=== PATIENT | female | born 1980 | race Caucasian/White ===

== ENCOUNTER 2017-05-02 15:04 | Emergency (ER) | payer OTHER ==
[~2017-05-02 15:04] MED LIST: LORTAB 5/500 TA1 TA1 PO; NO MEDICATIONS; PRENATAL MULTIV1 TA1; VOLTAREN50 MG PO; VOLTAREN75 MG PO
== END 2017-05-02 17:09 | disposition home or self-care (01) ==
LOC: SED 15:04
DX: S71.112A Laceration without foreign body, left thigh, initial encounter (principal); N28.9 Disorder of kidney and ureter, unspecified; F17.210 Nicotine dependence, cigarettes, uncomplicated; W45.8XXA Other foreign body or object entering through skin, initial encounter; Y92.099 Unspecified place in other non-institutional residence as the place of occurrence of the external cause
CPT/HCPCS: 12032; 99283